=== PATIENT | female | born 1990 | race Two or more races ===

== ENCOUNTER 2025-02-06 20:16 | Emergency (ER) | payer OTHER ==
[~2025-02-06] VITALS: Ht 152.4 cm; Wt 92.5 kg
[2025-02-06 21:16] VITALS: TEMP 98.3
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
[2025-02-06] MEDS: IBUPROFEN 600 MG TAB PO ONE (21:30)
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
[2025-02-06 22:44] VITALS: BP 131/60; PULSE 65; RESP 16
[2025-02-06 22:45] VITALS: O2SAT 99
== END 2025-02-06 22:47 | disposition home or self-care (01) ==
LOC: ER 20:16
DX: S29.012A Strain of muscle and tendon of back wall of thorax, initial encounter (principal); V89.2XXA Person injured in unspecified motor-vehicle accident, traffic, initial encounter; Y93.89 Activity, other specified; Y92.89 Other specified places as the place of occurrence of the external cause; Y99.8 Other external cause status
CPT/HCPCS: 72070